=== PATIENT | male | born 1965 | race Two or more races ===

== ENCOUNTER 2020-11-11 10:43 | Emergency (ER) | payer SELFPAY ==
[2020-11-11] MEDS ORDERED: Sodium Chloride 0.9% 1,000 ML IV ONE (11:12)
[2020-11-11] MEDS ORDERED: Ondansetron 4 MG/2 ML SDV IVPUSH ONE (11:12)
[2020-11-11] MEDS ORDERED: fentaNYL 100 MCG/2 ML SDV IVPUSH ONE (11:15)
--- NOTE | 2020-11-11 11:22 | EDM.PDOC ---
ED HPI GENERAL MEDICAL PROBLEM - General Chief Complaint: Fever Stated Complaint: SHORTNESS OF BREATH/BACK PAIN/SORE THROAT/FEVER Time Seen by Provider: 11/11/20 10:53 Source of Information: Reports: Patient History Limitations: Reports: No Limitations - History of Present Illness INITIAL COMMENTS - FREE TEXT/NARRATIVE: Presents reporting left flank pain, fever, fatigue and mild nausea since 3 AM this morning. Patient states he will awoke with a fever at about 3:00 in the morning highest was 101.7. He states he felt achy all over with fatigue and no energy. His back pain is in the left flank and CVA area radiating downward in intensity of 8 out of 10. Nothing makes it better. It is somewhat intensified by taking a deep breath. Admits to mild burning with urination but no frequency or urgency. He is sexually active with one partner and not for the last 3 weeks. He is otherwise healthy without chronic medical problems and takes no medications. No personal or family history of kidney stones. He does not smoke. No cough, shortness of breath, abdominal pain, diarrhea, constipation, known Covid exposures. general Pain Score (Numeric/FACES): 8 - Related Data Allergies Allergy/AdvReac Type Severity Reaction Status Date / Time No Known Allergies Allergy Verified 11/11/20 10:57 Home Meds: Home Meds . [No Known Home Meds] 10/03/14 [History] Past Medical History - Past Health History Medical/Surgical History: Denies Medical/Surgical History - Infectious Disease History Infectious Disease History: Reports: None Social & Family History - Family History Family Medical History: No Pertinent Family History - Tobacco Use Tobacco Use Status *Q: Never Tobacco User - Recreational Drug Use Recreational Drug Use: No ED ROS GENERAL - Review of Systems Review Of Systems: Comprehensive ROS is negative, except as noted in HPI. ED EXAM, RENAL/ - Physical Exam Exam: See Below Exam Limited By: No Limitations General Appearance: Alert, No Apparent Distress Ears: Normal External Exam Nose: Normal Inspection Throat/Mouth: Normal Inspection Head: Atraumatic, Normocephalic Neck: Normal Inspection Respiratory/Chest: No Respiratory Distress Cardiovascular: Normal Peripheral Pulses, Regular Rate, Rhythm GI/Abdominal: Normal Bowel Sounds, Soft, Non-Tender, No Distention Extremities: Normal Inspection, Normal Range of Motion Neurological: Alert, Oriented, Normal Cognition Psychiatric: Normal Affect, Normal Mood Skin Exam: Warm, Dry, Intact, Normal Color, No Rash Lymphatic: No Adenopathy Course - Vital Signs Last Recorded V/S: Last Vital Signs Temp 36.3 C 11/11/20 10:53 Pulse 71 11/11/20 10:53 Resp 18 11/11/20 10:53 BP 149/90 H 11/11/20 10:53 Pulse Ox 97 11/11/20 10:53 - Orders/Labs/Meds Labs: Laboratory Tests 11/11/20 11/11/20 11/11/20 Range/Units 11:28 11:48 11:48 WBC 4.50 (4.0-11.0) K/uL RBC 5.02 (4.50-5.90) M/uL Hgb 14.3 (13.0-17.0) g/dL Hct 42.9 (38.0-50.0) % MCV 85.5 (80.0-98.0) fL MCH 28.5 (27.0-32.0) pg MCHC 33.3 (31.0-37.0) g/dL RDW Std Deviation 42.7 (28.0-62.0) fl RDW Coeff of Jane 14 (11.0-15.0) % Plt Count 164 (150-400) K/uL MPV 10.10 (7.40-12.00) fL Neut % (Auto) 68.3 (48.0-80.0) % Lymph % (Auto) 25.1 (16.0-40.0) % [place] % (Auto) 6.4 (0.0-15.0) % Eos % (Auto) 0.0 (0.0-7.0) % Baso % (Auto) 0.2 (0.0-1.5) % Neut # (Auto) 3.1 (1.4-5.7) K/uL Lymph # (Auto) 1.1 (0.6-2.4) K/uL [place] # (Auto) 0.3 (0.0-0.8) K/uL Eos # (Auto) 0.0 (0.0-0.7) K/uL Baso # (Auto) 0.0 (0.0-0.1) K/uL Nucleated RBC % 0.0 /100WBC Nucleated RBCs # 0 K/uL Sodium 136 (136-148) mmol/L Potassium 3.7 (3.5-5.1) mmol/L Chloride 97 L (98-107) mmol/L Carbon Dioxide 26.8 (21.0-32.0) mmol/L BUN 13 (7.0-18.0) mg/dL Creatinine 0.9 (0.8-1.3) mg/dL Est Cr Clr Drug Dosing 99.94 mL/min Estimated GFR (MDRD) > 60.0 ml/min Glucose 103 (74-106) mg/dL Calcium 8.7 (8.5-10.1) mg/dL Total Bilirubin 0.6 (0.2-1.0) mg/dL AST 44 H (15-37) IU/L ALT 49 (14-63) IU/L Alkaline Phosphatase 76 (46-116) U/L Total Protein 8.5 H (6.4-8.2) g/dL Albumin 3.8 (3.4-5.0) g/dL Globulin 4.7 H (2.6-4.0) g/dL Albumin/Globulin Ratio 0.8 L (0.9-1.6) Urine Color YELLOW Urine Appearance CLEAR Urine pH 5.5 (5.0-8.0) Ur Specific [place] >= 1.030 (1.001-1.035) Urine Protein 30 H (NEGATIVE) mg/dL Urine Glucose (UA) NEGATIVE (NEGATIVE) mg/dL Urine Ketones NEGATIVE (NEGATIVE) mg/dL Urine Occult Blood TRACE-INTACT H (NEGATIVE) Urine Nitrite NEGATIVE (NEGATIVE) Urine Bilirubin NEGATIVE (NEGATIVE) Urine Urobilinogen 0.2 (<2.0) EU/dL Ur Leukocyte Esterase NEGATIVE (NEGATIVE) Urine RBC 3-5 (0-2/HPF) Urine WBC 0-3 (0-5/HPF) Ur Epithelial Cells RARE (NONE-FEW) Urine Bacteria RARE (NEGATIVE) Urine Mucus LIGHT (NONE-MOD) SARS-CoV-2 RNA (LE) (NEGATIVE) 11/11/20 Range/Units 13:16 WBC (4.0-11.0) K/uL RBC (4.50-5.90) M/uL Hgb (13.0-17.0) g/dL Hct (38.0-50.0) % MCV (80.0-98.0) fL MCH (27.0-32.0) pg MCHC (31.0-37.0) g/dL RDW Std Deviation (28.0-62.0) fl RDW Coeff of Jane (11.0-15.0) % Plt Count (150-400) K/uL MPV (7.40-12.00) fL Neut % (Auto) (48.0-80.0) % Lymph % (Auto) (16.0-40.0) % [place] % (Auto) (0.0-15.0) % Eos % (Auto) (0.0-7.0) % Baso % (Auto) (0.0-1.5) % Neut # (Auto) (1.4-5.7) K/uL Lymph # (Auto) (0.6-2.4) K/uL [place] # (Auto) (0.0-0.8) K/uL Eos # (Auto) (0.0-0.7) K/uL Baso # (Auto) (0.0-0.1) K/uL Nucleated RBC % /100WBC Nucleated RBCs # K/uL Sodium (136-148) mmol/L Potassium (3.5-5.1) mmol/L Chloride (98-107) mmol/L Carbon Dioxide (21.0-32.0) mmol/L BUN (7.0-18.0) mg/dL Creatinine (0.8-1.3) mg/dL Est Cr Clr Drug Dosing mL/min Estimated GFR (MDRD) ml/min Glucose (74-106) mg/dL Calcium (8.5-10.1) mg/dL Total Bilirubin (0.2-1.0) mg/dL AST (15-37) IU/L ALT (14-63) IU/L Alkaline Phosphatase (46-116) U/L Total Protein (6.4-8.2) g/dL Albumin (3.4-5.0) g/dL Globulin (2.6-4.0) g/dL Albumin/Globulin Ratio (0.9-1.6) Urine Color Urine Appearance Urine pH (5.0-8.0) Ur Specific [place] (1.001-1.035) Urine Protein (NEGATIVE) mg/dL Urine Glucose (UA) (NEGATIVE) mg/dL Urine Ketones (NEGATIVE) mg/dL Urine Occult Blood (NEGATIVE) Urine Nitrite (NEGATIVE) Urine Bilirubin (NEGATIVE) Urine Urobilinogen (<2.0) EU/dL Ur Leukocyte Esterase (NEGATIVE) Urine RBC (0-2/HPF) Urine WBC (0-5/HPF) Ur Epithelial Cells (NONE-FEW) Urine Bacteria (NEGATIVE) Urine Mucus (NONE-MOD) SARS-CoV-2 RNA (LE) POSITIVE H (NEGATIVE) Meds: Medications Discontinued Medications Generic Name Dose Route Start Last Admin Trade Name Estrella PRN Reason Stop Dose Admin Fentanyl 50 mcg 11/11/20 11:15 11/11/20 11:31 Sublimaze IVPUSH 11/11/20 11:16 50 mcg ONETIME ONE Administration Sodium Chloride 1,000 mls @ 999 mls/hr 11/11/20 11:12 11/11/20 11:42 Normal Saline IV 11/11/20 12:12 999 mls/hr .Bolus ONE Administration Ondansetron HCl 4 mg 11/11/20 11:12 11/11/20 11:31 Zofran IVPUSH 11/11/20 11:13 4 mg ONETIME ONE Administration Departure - Departure Time of Disposition: 14:16 Disposition: Home, Self-Care 01 Condition: Good Clinical Impression: COVID-19 - Discharge Information Referrals: PCP,None [Primary Care Provider] - [facility] [Outside] [facility] [address] [Outside] Forms: ED Department Discharge Additional Instructions: The following information is given to patients seen in the emergency department who are being discharged to home. This information is to outline your options for follow-up care. We provide all patients seen in our emergency department with a follow-up referral. The need for follow-up, as well as the timing and circumstances, are variable depending upon the specifics of your emergency department visit. If you don't have a primary care physician on staff, we will provide you with a referral. We always advise you to contact your personal physician following an emergency department visit to inform them of the circumstance of the visit and for follow-up with them and/or the need for any referrals to a consulting specialist. The emergency department will also refer you to a specialist when appropriate. This referral assures that you have the opportunity for follow-up care with a specialist. All of these measure are taken in an effort to provide you with optimal care, which includes your follow-up. Under all circumstances we always encourage you to contact your private physician who remains a resource for coordinating your care. When calling for follow-up care, please make the office aware that this follow-up is from your recent emergency room visit. If for any reason you are refused follow-up, please contact the [facility] Emergency Department at and asked to speak to the emergency department charge nurse. 1. Drink plenty of fluids and rest 2. Tylenol or ibuprofen as needed for body aches and fever 3. Return promptly for shortness of breath, vomiting and not keeping down oral fluids 4. Quarantine for the next 10 to 14 days as directed by state caser. Sepsis Event Note (ED) - Evaluation Sepsis Screening Result: No Definite Risk - Focused Exam Vital Signs: Vital Signs Temp Pulse Resp BP Pulse Ox 11/11/20 10:53 36.3 C 71 18 149/90 H 97
[2020-11-11 12:21] LABS: BLOOD UREA NITROGEN,BUN 13 mg/dL (7.0-18.0); CARBON DIOXIDE,CO2 26.8 mmol/L (21.0-32.0); CHLORIDE,CL 97 mmol/L (98-107); GLUCOSE RANDOM 103 mg/dL (74-106); POTASSIUM,K 3.7 mmol/L (3.5-5.1); SODIUM,NA 136 mmol/L (136-148)
--- NOTE | 2020-11-11 12:51 | CT ---
Indication: Left flank pain Technique: Volumetric multidetector CT images of the abdomen and pelvis were without the administration of intravenous contrast. Comparison: None available. Findings: There are patchy airspace and ground-glass opacities within the lung bases likely representing multifocal infiltrates. The liver is normal in attenuation without intrahepatic biliary ductal dilatation. The gallbladder is unremarkable without evidence of radiopaque calculus. There is no significant common biliary ductal dilatation or abrupt cut off. The spleen is normal in attenuation and size. The stomach and duodenum are grossly unremarkable. The pancreas is normal in attenuation without significant atrophy. The adrenal glands are unremarkable. There is no evidence of radiopaque calculus or hydronephrosis. There is a mild amount of stool seen throughout the colon. There is mild distal colonic diverticulosis. The appendix is unremarkable. There is no significant mesenteric, retroperitoneal, or pelvic sidewall lymph nodes. The aorta is nonaneurysmal. There is no significant atherosclerotic disease appreciated. The solid pelvic viscera are grossly unremarkable. There is no free fluid or free air. The anterior abdominal wall is intact without significant hernias. There is a fat containing left inguinal hernia incidentally noted. The lumbar vertebral body heights are grossly maintained with mild to moderate degenerative changes. Impression: No evidence of radiopaque calculus or obstructive uropathy. Incidental note is made of extensive ground-glass and airspace opacities within the lung bases which may represent multifocal infiltrates such as can be seen with clayton virus 19. Please note that all CT scans at this facility use dose modulation, iterative reconstruction, and/or weight-based dosing when appropriate to reduce radiation dose to as low as reasonably achievable. Dictated by Mitchell Rubio MD @ Nov 11 2020 12:36PM Signed by Dr. Mitchell Rubio @ Nov 11 2020 12:49PM
[2020-11-11 14:52] VITALS: BP 130/79; PULSE 66
== END 2020-11-11 14:48 | disposition home or self-care (01) ==
LOC: MW.ED 10:43
DX: U07.1 COVID-19 (principal)
CPT/HCPCS: 36415; 74176; 80053; 81001; 85025; 87635; 96374; 96375; 99284; J2405; J3010; J7030; 99283; U0002